=== PATIENT | female | born 1985 | race Caucasian/White ===

== ENCOUNTER 2018-11-15 15:42 | Inpatient (IN) | payer OTHER ==
[2018-11-15 19:45] VITALS: BMI 26.4
--- NOTE | 2018-11-15 21:19 | HP ---
COWS - Scale Resting Pulse: 0= [place] 80 or Below Sweatin= Chills/Flushing Restless Observation: 5= Unable to Sit Still Pupil Size: 0= Normal to Room Light Bone or Joint Aches: 4=Acute Joint/Muscle Pain Runny Nose/ Eye Tearin= Runny Nose/Eyes GI Upset > 30mins: 0= None Tremor Observation: 1= Tremor [place], Not Seen Yawning Observation: 1= 1-2x During Session Anxiety or Irritability: 2=Irritable/Anxious Goose Flesh Skin: 3=Piloerection COWS Score: 19 CIWA Score - Admission Criteria [facility] Guidelines: Admission for Medically Managed Detox: Requires at least one of the followin. CIWA greater than 12 2. Seizures within the past 24 hours 3. Delirium tremens within the past 24 hours 4. Hallucinations within the past 24 hours 5. Acute intervention needed for co occurring medical disorder 6. Acute intervention needed for co occurring psychiatric disorder 7. Severe withdrawal that cannot be handled at a lower level of care (continued vomiting, continued diarrhea, abnormal vital signs) requiring intravenous medication and/or fluids 8. Admission ROS [facility] Chief Complaint: c/o of withdrawal sx's Allergies/Adverse Reactions: Allergies Allergy/AdvReac Type Severity Reaction Status Date / Time No Known Allergies Allergy Verified 11/15/18 19:37 History of Present Illness: 33 Y.O. FEMALE WITH OPIOID DEPENDENCE HERE FOR DETOX. THIS IS HERE FIRST ADMISSION HERE. SHE IS REFERRED BY [facility]. PRESENTS TODAY WITH WITHDRAWAL SX'S. STATES LAST USE OF HEROIN EARLIER TODAY. REPORTS DAILY USE VIA IV. SHE ALSO USES COCAINE. DENIES ANY SIGNIFICANT PERIOD OF CLEAN SINCE THE AGE OF 17 WHEN SHE FIRST STARTED USING DRUGS. REPORTS HX/O 30 DRUG OVERDOSES. LAST BEING 01/2018. 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 Exam Limitations: No Limitations - Ebola screening Have you traveled outside of the country in the last 21 days: No Have you had contact with anyone from an Ebola affected area: No Have you been sick,other than usual withdrawal symptoms: No Do you have a fever: No - Review of Systems Constitutional: Chills, Malaise, Night Sweats, Changes in sleep EENT: reports: Blurred Vision (WEARS GLASSES FOR DISTANCE), Nose Congestion Respiratory: reports: No Symptoms reported Cardiac: reports: Edema (BLE) GI: reports: No Symptoms Reported : reports: No Symptoms Reported Musculoskeletal: reports: No Symptoms Reported Integumentary: reports: No Symptoms Reported Neuro: reports: Tremors (R/T WITHDRAWAL), Dizziness (HX/O VERTIGO) Endocrine: reports: No Symptoms Reported Hematology: reports: No Symptoms Reported Psychiatric: reports: Orientated x3, Depressed Other Systems: Reviewed and Negative Patient History - Patient Medical History Hx Anemia: No Hx Asthma: No Hx Chronic Obstructive Pulmonary Disease (COPD): No Hx Cancer: No Hx Cardiac Disorders: No Hx Congestive Heart Failure: No Hx Hypertension: No Hx Hypercholesterolemia: No Hx Pacemaker: No HX Cerebrovascular Accident: No Hx Seizures: No Hx Dementia: No Hx Diabetes: No Hx Gastrointestinal Disorders: No Hx Liver Disease: No Hx Genitourinary Disorders: No Hx Sexually Transmitted Disorders: Yes (HX/O GC/CHL) Hx Renal Disease (ESRD): No Hx Thyroid Disease: No Hx Human Immunodeficiency Virus (HIV): No Hx Hepatitis C: Yes (NO TXMENT) Hx Depression: No Hx Suicide Attempt: No Hx Bipolar Disorder: No Hx Schizophrenia: No Other Medical History: DENIES - Patient Surgical History Past Surgical History: No - PPD History Previous Implant?: Yes Documented Results: Negative w/o proof Implanted On Prior [facility] Admission?: No PPD to be Administered?: Yes - Reproductive History Patient is a Female of Child Bearing Age (11 -55 yrs old): Yes LMP comment: DOES NOT RECALL-IRREG Patient : No (NEG [facility]) - Smoking Cessation Smoking history: Current every day smoker Have you smoked in the past 12 months: Yes Aproximately how many cigarettes per day: 20 Cigars Per Day: 0 Hx Chewing Tobacco Use: No Initiated information on smoking cessation: Yes 'Breaking Loose' booklet given: 11/15/18 - Substance & Tx. History Hx Alcohol Use: No Hx Substance Use: Yes Substance Use Type: Cocaine, Heroin Hx Substance Use Treatment: No (DENIES) - Substances abused Heroin Substance route: Injection Frequency: Daily Amount used: 1 bundle Age of first use: 30 Date of last use: 11/15/18 Crack Substance route: Smoking Frequency: Daily Amount used: 5 grams Age of first use: 17 Date of last use: 11/15/18 Cocaine Substance route: Inhalation Frequency: 3-6 times per week Amount used: 1 bag Age of first use: 17 Date of last use: 11/12/18 Family Disease History - Family Disease History Family History: Denies Admission Physical Exam [facility] - Vital Signs Vital Signs: Vital Signs - 24 hr 11/15/18 19:38 Temperature 98.3 F Pulse Rate 73 Respiratory 20 Rate Blood Pressure 127/88 - Physical General Appearance: Yes: Moderate Distress, Tremorous (FELT), Irritable, Anxious , Other (FALLING ASLEEP INTERMITTENTLY DURING INTERVIEW) HEENTM: Yes: EOMI, Normocephalic, Normal Voice, ROXANA, Pharynx Normal, Other ( POOR DENTAL HYGIENE) Respiratory: Yes: Chest Non-Tender, Lungs Clear, Normal Breath Sounds, No Respiratory Distress, No Accessory Muscle Use Neck: Yes: No masses,lesions,Nodules, Supple, Trachea in good position Breast: Yes: Breasts Symetrical Cardiology: Yes: Regular Rhythm, Regular Rate, S1, S2 Abdominal: Yes: Normal Bowel Sounds, Non Tender, Soft Genitourinary: Yes: Within Normal Limits (NO C/O OFFERED) Back: Yes: Normal Inspection Musculoskeletal: Yes: full range of Motion, Gait Steady Extremities: Yes: Normal Range of Motion, Non-Tender, Tremors (FELT) Neurological: Yes: Fully Oriented, Alert, Motor Strength 5/5, Depressed Affect Integumentary: Yes: Dry, Warm, Track [place] (TO BOTH ARMS) Lymphatic: Yes: Within Normal Limits - Diagnostic (1) Opioid dependence with withdrawal Current Visit: Yes Status: Acute (2) Cocaine dependence, uncomplicated Current Visit: Yes Status: Acute (3) Nicotine dependence Current Visit: Yes Status: Chronic Qualifiers: Nicotine product type: cigarettes Substance use status: uncomplicated Qualified Code(s): F17.210 - Nicotine dependence, cigarettes, uncomplicated (4) IVDU (intravenous drug user) Current Visit: Yes Status: Acute (5) Hepatitis C carrier Current Visit: Yes Status: Acute Cleared for Admission [facility] - Detox or Rehab [facility] Level of Care: Medically Managed Detox Regimen/Protocol: Methadone Claeared for Rehab Admission: No Breathalyzer - Breathalyzer Breathalyzer: 0 Urine Drug Screen - Test Device Lot number: [id number] Expiration date: 08/18/20 - Control Is test valid?: Yes - Results Drug screen NEGATIVE: No Urine drug screen results: CHELY-Cocaine, FEN-Fentanyl, MOP-Opiates, OXY-Oxycodone Inpatient Rehab Admission - Rehab Decision to Admit Inpatient rehab admission?: No
[2018-11-15] MEDS ORDERED: DICYCLOMINE HCL 10 MG CAPSULE PO PRN (21:26)
[2018-11-15] MEDS ORDERED: IBUPROFEN 400 MG TABLET (FP) PO PRN (21:26)
[2018-11-15] MEDS ORDERED: MAGNESIUM CITRATE 300 ML BOTTLE PO PRN (21:26)
[2018-11-15] MEDS ORDERED: ACETAMINOPHEN 325 MG TABLET (FP) PO PRN ×2 (21:26)
[2018-11-15] MEDS ORDERED: ONDANSETRON *ODT* 4 MG TABLET SL PRN (21:26)
[2018-11-15] MEDS ORDERED: MAG HYDROX/AL HYDROX/SIMETH 30 ML UNIT-DOSE CUP PO PRN (21:26)
[2018-11-15] MEDS ORDERED: NICOTINE POLACRILEX 2 MG GUM BUC PRN (21:26)
[2018-11-15] MEDS ORDERED: METHOCARBAMOL 500 MG TABLET PO PRN (21:26)
[2018-11-15] MEDS ORDERED: MELATONIN 5 MG TABLETS PO PRN (21:26)
[2018-11-15] MEDS ORDERED: MAGNESIUM HYDROX 2400MG/30ML ORAL SUSPENSION 30 ML CUP PO PRN (21:26)
[2018-11-15] MEDS ORDERED: BISMUTH SUBSALICYLATE 524 MG/30 ML UD PO PRN (21:26)
[2018-11-15] MEDS ORDERED: hydrOXYzine PAMOATE 25 MG CAPSULE (FP) PO PRN (21:26)
[2018-11-15] MEDS ORDERED: P-EPHED 60MG/TRIPROLIDI 2.5MG TABLET PO PRN (21:26)
[2018-11-15] MEDS ORDERED: MENTHOL/PHENOL 1 EACH UD MM PRN (21:26)
[2018-11-15] MEDS ORDERED: guaiFENesin 200 MG/10 ML 10 ML UNIT-DOSE CUPS PO PRN (21:26)
[2018-11-15] MEDS: THIAMINE HCL 100 MG TABLET (FP) PO SCH (23:19)
[2018-11-15] MEDS ORDERED: METHADONE HCL 10 MG TABLET (FOR DETOX USE ONLY) PO ONE (23:43)
[2018-11-16] MEDS ORDERED: METHADONE HCL 5 MG TABLET (FOR DETOX USE ONLY) ONE (09:00)
[2018-11-16] MEDS ORDERED: METHADONE HCL 10 MG TABLET (FOR DETOX USE ONLY) ONE (09:00)
[2018-11-16] MEDS ORDERED: METHADONE (DETOX) 20 MG, METHADONE (DETOX) 5 MG PO ONE (10:00)
[2018-11-16] MEDS: NICOTINE 21 MG/24 HOURS TOPICAL PATCH TD SCH (10:26)
[2018-11-16] MEDS: PRENATAL VITAMINS W/ FOLIC ACID TABLET (FP) PO SCH (10:26)
--- NOTE | 2018-11-16 10:34 | EKG ---
Test Reason : Blood Pressure : / mmHG Vent. Rate : 067 BPM Atrial Rate : 067 BPM P-R Int : 134 ms QRS Dur : 072 ms QT Int : 418 ms P-R-T Axes : 035 025 032 degrees QTc Int : 441 ms NORMAL SINUS RHYTHM NORMAL ECG NO PREVIOUS ECGS AVAILABLE Confirmed by CARMELA CARLSON, SARAH ([id number]) on 11/16/2018 10:33:54 AM Referred By: AYDEN CARVAJAL Confirmed By:SARAH CASEY MD
[2018-11-16 11:47] LABS: HEMATOCRIT 41.1 % (32.4-45.2); HEMOGLOBIN 13.5 GM/dL (10.7-15.3); MCH 29.7 pg (25.7-33.7); MCHC 32.8 g/dl (32.0-36.0); MEAN CELL VOLUME 90.7 fl (80-96); MEAN PLT VOLUME 7.1 fl (7.5-11.1); PLATELET COUNT 302 K/MM3 (134-434); RBC 4.53 M/mm3 (3.60-5.2); RDW 14.3 % (11.6-15.6); WHITE BLOOD COUNT 6.6 K/mm3 (4.0-10.0)
[2018-11-16 11:51] LABS: ALBUMIN 3.8 g/dl (3.4-5.0); BILIRUBIN,TOTAL 0.7 mg/dL (0.2-1); BLOOD UREA NITROGEN 6.7 mg/dL (7-18); CALCIUM 9.4 mg/dL (8.5-10.1); CREATININE 0.6 mg/dL (0.55-1.3); POTASSIUM 4.2 mmol/L (3.5-5.1); TOT PROT 8.1 g/dl (6.4-8.2)
--- NOTE | 2018-11-16 12:48 | PN ---
BHS COWS - Scale Resting Pulse: 1= [place] 81-100 Sweatin=Flushed/Facial Moisture Restless Observation: 1= Difficult to Sit Still Pupil Size: 0= Normal to Room Light Bone or Joint Aches: 2= Severe Diffuse Aches Runny Nose/ Eye Tearin= Runny Nose/Eyes GI Upset > 30mins: 0= None Tremor Observation of Outstretched Hands: 1= Tremor [place], Not Seen Yawning Observation: 1= 1-2x During Session Anxiety or Irritability: 1=Feels Anxious/Irritable Goose Flesh Skin: 0=Smooth Skin COWS Score: 11 S Progress Note (SOAP) Subjective: sweats shakes interrupted sleep body aches Objective: 11/16/18 12:48 Vital Signs Temperature 98.9 F 11/16/18 09:46 Pulse Rate 86 11/16/18 09:46 Respiratory Rate 18 11/16/18 09:46 Blood Pressure 156/92 11/16/18 09:46 O2 Sat by Pulse Oximetry (%) Laboratory Tests 11/16/18 11/16/18 07:30 07:30 WBC 6.6 RBC 4.53 Hgb 13.5 Hct 41.1 MCV 90.7 MCH 29.7 MCHC 32.8 RDW 14.3 Plt Count 302 MPV 7.1 L Sodium 139 Potassium 4.2 Chloride 105 Carbon Dioxide 28 Anion Gap 6 L BUN 6.7 L Creatinine 0.6 Est GFR (CKD-EPI)AfAm 137.83 Est GFR (CKD-EPI)NonAf 118.92 Random Glucose 81 Calcium 9.4 Total Bilirubin 0.7 AST 21 ALT 28 Alkaline Phosphatase 93 Total Protein 8.1 Albumin 3.8 labs noted aaox3 ambulating no acute distress Assessment: 11/16/18 12:48 withdrawal sx Plan: continue detox increase fluids
--- NOTE | 2018-11-16 14:55 | CONSULT ---
[facility] Psychiatric Consult - Data Date of interview: 11/16/18 Admission source: [facility] Identifying data: Yarn Examiner Skeins approached patient for psychiatric consultation. Stated , "no no. i'm fine. i don't have to see you." Psychiatric consultation refused.
[2018-11-16] MEDS: cloNIDine HCL 0.1 MG TABLET PO PRN (20:07)
[2018-11-16] MEDS: THIAMINE HCL 100 MG TABLET (FP) PO SCH (22:26)
[2018-11-17] MEDS: cloNIDine HCL 0.1 MG TABLET PO PRN (09:51)
[2018-11-17] MEDS: NICOTINE 21 MG/24 HOURS TOPICAL PATCH TD SCH (09:54)
[2018-11-17] MEDS: PRENATAL VITAMINS W/ FOLIC ACID TABLET (FP) PO SCH (09:54)
[2018-11-17] MEDS ORDERED: METHADONE HCL 10 MG TABLET (FOR DETOX USE ONLY) PO ONE (10:00)
--- NOTE | 2018-11-17 12:57 | PN ---
[facility] COWS - Scale Resting Pulse: 0= [place] 80 or Below Sweatin=Flushed/Facial Moisture Restless Observation: 1= Difficult to Sit Still Pupil Size: 0= Normal to Room Light Bone or Joint Aches: 2= Severe Diffuse Aches Runny Nose/ Eye Tearin= Runny Nose/Eyes GI Upset > 30mins: 0= None Tremor Observation of Outstretched Hands: 2= Slight Tremor Visible Yawning Observation: 2= >3x During Session Anxiety or Irritability: 1=Feels Anxious/Irritable Goose Flesh Skin: 0=Smooth Skin COWS Score: 12 BHS Progress Note (SOAP) Subjective: sweats shakes chills body aches interrupted sleep anxiety Objective: 11/17/18 12:57 Vital Signs Temperature 97.9 F 11/17/18 12:41 Pulse Rate 67 11/17/18 12:41 Respiratory Rate 18 11/17/18 12:41 Blood Pressure 121/76 11/17/18 12:41 O2 Sat by Pulse Oximetry (%) Laboratory Tests 11/16/18 11/16/18 11/16/18 07:30 07:30 07:30 WBC 6.6 RBC 4.53 Hgb 13.5 Hct 41.1 MCV 90.7 MCH 29.7 MCHC 32.8 RDW 14.3 Plt Count 302 MPV 7.1 L Sodium 139 Potassium 4.2 Chloride 105 Carbon Dioxide 28 Anion Gap 6 L BUN 6.7 L Creatinine 0.6 Est GFR (CKD-EPI)AfAm 137.83 Est GFR (CKD-EPI)NonAf 118.92 Random Glucose 81 Calcium 9.4 Total Bilirubin 0.7 AST 21 ALT 28 Alkaline Phosphatase 93 Total Protein 8.1 Albumin 3.8 RPR Titer Nonreactive HIV 1&2 Ag/Ab, 4th Gen HIV 1&2 Antibody Screen HIV P24 Antigen 11/16/18 11/16/18 07:30 10:00 WBC RBC Hgb Hct MCV MCH MCHC RDW Plt Count MPV Sodium Potassium Chloride Carbon Dioxide Anion Gap BUN Creatinine Est GFR (CKD-EPI)AfAm Est GFR (CKD-EPI)NonAf Random Glucose Calcium Total Bilirubin AST ALT Alkaline Phosphatase Total Protein Albumin RPR Titer HIV 1&2 Ag/Ab, 4th Gen Non reactive HIV 1&2 Antibody Screen Cancelled HIV P24 Antigen Cancelled labs noted aaox3 ambulating no acute distress Assessment: 11/17/18 12:57 withdrawal sx Plan: continue detox increase fluids
[2018-11-17 21:56] LABS: EPI CELLS 22.6 /HPF (0-5/HPF); HYALINE CASTS 98 /lpf (0-8); URINE APPEARANCE TURBID; URINE BACTERIA 882.5 /hpf (NEGATIVE); URINE BILIRUBIN NEGATIVE (NEGATIVE); URINE COLOR DK YELLOW; URINE GLUCOSE (UA) NEGATIVE (NEGATIVE); URINE KETONE NEGATIVE (NEGATIVE); URINE LEUK ESTERASE 2+ (NEGATIVE); URINE NITRITE NEGATIVE (NEGATIVE); URINE PROTEIN TRACE (NEGATIVE); URINE RBC 1 /hpf (0-4); URINE WBC 79 /hpf (0-5)
[2018-11-17] MEDS: THIAMINE HCL 100 MG TABLET (FP) PO SCH (22:08)
[2018-11-17 22:49] LABS: URINE CRYSTALS NONE SEEN /hpf
[2018-11-18] MEDS ORDERED: METHADONE HCL 10 MG TABLET (FOR DETOX USE ONLY) ONE (09:08)
[2018-11-18] MEDS ORDERED: METHADONE HCL 5 MG TABLET (FOR DETOX USE ONLY) ONE (09:08)
[2018-11-18] MEDS: NICOTINE 21 MG/24 HOURS TOPICAL PATCH TD SCH (09:15)
[2018-11-18] MEDS: PRENATAL VITAMINS W/ FOLIC ACID TABLET (FP) PO SCH (09:15)
[2018-11-18] MEDS ORDERED: METHADONE (DETOX) 10 MG, METHADONE (DETOX) 5 MG PO ONE (10:00)
--- NOTE | 2018-11-18 11:13 | PN ---
BHS COWS - Scale Resting Pulse: 0= [place] 80 or Below Sweatin= Beads of Sweat on Face Restless Observation: 1= Difficult to Sit Still Pupil Size: 0= Normal to Room Light Bone or Joint Aches: 4=Acute Joint/Muscle Pain Runny Nose/ Eye Tearin= None GI Upset > 30mins: 1= Stomach Cramp Tremor Observation of Outstretched Hands: 2= Slight Tremor Visible Yawning Observation: 1= 1-2x During Session Anxiety or Irritability: 2=Irritable/Anxious Goose Flesh Skin: 0=Smooth Skin COWS Score: 14 BHS Progress Note (SOAP) Subjective: c/o stomach cramp, anxiety, irritability, sweats, and headache. Objective: 11/18/18 11:12 Vital Signs 11/18/18 11/18/18 11/18/18 03:30 07:16 09:48 Temperature 97.7 F 98.4 F Pulse Rate 63 74 Respiratory 18 17 18 Rate Blood Pressure 118/77 142/95 Lab Results WBC 6.6 K/mm3 (4.0-10.0) 11/16/18 07:30 RBC 4.53 M/mm3 (3.60-5.2) 11/16/18 07:30 Hgb 13.5 GM/dL (10.7-15.3) 11/16/18 07:30 Hct 41.1 % (32.4-45.2) 11/16/18 07:30 MCV 90.7 fl (80-96) 11/16/18 07:30 MCHC 32.8 g/dl (32.0-36.0) 11/16/18 07:30 RDW 14.3 % (11.6-15.6) 11/16/18 07:30 Plt Count 302 K/MM3 (134-434) 11/16/18 07:30 Sodium 139 mmol/L (136-145) 11/16/18 07:30 Potassium 4.2 mmol/L (3.5-5.1) 11/16/18 07:30 Chloride 105 mmol/L (98-107) 11/16/18 07:30 Carbon Dioxide 28 mmol/L (21-32) 11/16/18 07:30 Anion Gap 6 MMOL/L (8-16) L 11/16/18 07:30 BUN 6.7 mg/dL (7-18) L 11/16/18 07:30 Creatinine 0.6 mg/dL (0.55-1.3) 11/16/18 07:30 Random Glucose 81 mg/dL (74-106) 11/16/18 07:30 Calcium 9.4 mg/dL (8.5-10.1) 11/16/18 07:30 Labs noted. Assessment: 11/18/18 11:13 AOX3, in no acute respiratory distress. Full ROM, ambulating in the unit. withdrawal symptoms. Plan: continue detox.
[2018-11-18 13:35] VITALS: BP 108/64; PULSE 69; TEMP 97.5
--- NOTE | 2018-11-18 15:19 | DS ---
[facility] Detox Discharge Summary Admission Date: 11/15/18 Discharge Date: 11/18/18 (Left AMA) - History Present History: Cocaine Dependence, Opioid Dependence Additional Comments: Pt left AMA, pt did not complete her detox protocol. Pt states she wants to leave, attempt to let her stay and complete the detox protocol failed. Pt is encouraged to follow-up with [facility] outpatient program and also to follow-up with her PMD but is adamant about the information given. Pt is alert and oriented x3 and in no acute respiratory distress. Pertinent Past History: H/O cocaine and heroin use disorder. - Physical Exam Results Vital Signs: Vital Signs Temperature 97.5 F L 11/18/18 13:34 Pulse Rate 69 11/18/18 13:34 Respiratory Rate 18 11/18/18 13:34 Blood Pressure 108/64 11/18/18 13:34 O2 Sat by Pulse Oximetry (%) Vital Signs 11/18/18 11/18/18 11/18/18 07:16 09:48 13:34 Temperature 97.7 F 98.4 F 97.5 F L Pulse Rate 63 74 69 Respiratory 17 18 18 Rate Blood Pressure 118/77 142/95 108/64 Lab Results WBC 6.6 K/mm3 (4.0-10.0) 11/16/18 07:30 RBC 4.53 M/mm3 (3.60-5.2) 11/16/18 07:30 Hgb 13.5 GM/dL (10.7-15.3) 11/16/18 07:30 Hct 41.1 % (32.4-45.2) 11/16/18 07:30 MCV 90.7 fl (80-96) 11/16/18 07:30 MCHC 32.8 g/dl (32.0-36.0) 11/16/18 07:30 RDW 14.3 % (11.6-15.6) 11/16/18 07:30 Plt Count 302 K/MM3 (134-434) 11/16/18 07:30 Sodium 139 mmol/L (136-145) 11/16/18 07:30 Potassium 4.2 mmol/L (3.5-5.1) 11/16/18 07:30 Chloride 105 mmol/L (98-107) 11/16/18 07:30 Carbon Dioxide 28 mmol/L (21-32) 11/16/18 07:30 Anion Gap 6 MMOL/L (8-16) L 11/16/18 07:30 BUN 6.7 mg/dL (7-18) L 11/16/18 07:30 Creatinine 0.6 mg/dL (0.55-1.3) 11/16/18 07:30 Random Glucose 81 mg/dL (74-106) 11/16/18 07:30 Calcium 9.4 mg/dL (8.5-10.1) 11/16/18 07:30 Labs noted. Pertinent Admission Physical Exam Findings: withdrawal symptoms. - Treatment Hospital Course: Detox Protocol Followed - Medication Discharge Medications: Ambulatory Orders NK [No Known Home Medication] 11/15/18 - Diagnosis (1) Cocaine dependence, uncomplicated Status: Acute (2) Hepatitis C carrier Status: Acute (3) IVDU (intravenous drug user) Status: Acute (4) Opioid dependence with withdrawal Status: Acute (5) Nicotine dependence Status: Chronic Qualifiers: Nicotine product type: cigarettes Substance use status: uncomplicated Qualified Code(s): F17.210 - Nicotine dependence, cigarettes, uncomplicated - AMA Did Patient Leave Against Medical Advice: Yes
[2018-11-19] MEDS ORDERED: METHADONE HCL 10 MG TABLET (FOR DETOX USE ONLY) PO ONE (10:00)
[2018-11-20] MEDS ORDERED: METHADONE HCL 5 MG TABLET (FOR DETOX USE ONLY) PO ONE (06:00)
== END 2018-11-18 15:30 | disposition left against medical advice (07) | DRG 770 ==
LOC: YASAS 15:42 → Y3N 22:19 → Y6N 22:23
PROVIDERS: ADMIT Surgery; ATTEND Surgery
PROC: HZ2ZZZZ Detoxification Services for Substance Abuse Treatment (ICD-10-PCS; principal; 2018-11-15)
DX: F11.23 Opioid dependence with withdrawal (principal); F14.20 Cocaine dependence, uncomplicated; F17.210 Nicotine dependence, cigarettes, uncomplicated; B18.2 Chronic viral hepatitis C; Z86.19 Personal history of other infectious and parasitic diseases
CPT/HCPCS: 36415; 80053; 81003; 85027; 86480; 86593; 87389; 93005; 93010; J0735; Q0162

== ENCOUNTER 2020-02-08 05:47 | Emergency (ER) | payer OTHER ==
[2020-02-08] MEDS ORDERED: AZITHROMYCIN 500 MG TABLET PO ONE (06:35)
[2020-02-08 06:50] VITALS: BP 131/84; PULSE 98; TEMP 98.8; BMI 25.4
[2020-02-08] MEDS ORDERED: metroNIDAZOLE 250 MG TABLET PO ONE (06:55)
[2020-02-08] MEDS ORDERED: AZITHROMYCIN 250 MG TABLET ONE ×2 (07:01→07:10)
[2020-02-08] MEDS ORDERED: AZITHROMYCIN 250 MG TABLET PO ONE (07:08)
[2020-02-08] MEDS ORDERED: metroNIDAZOLE 250 MG TABLET ONE (07:44)
[2020-02-08 10:38] LABS: URINE APPEARANCE Clear; URINE BILIRUBIN Negative (NEGATIVE); URINE COLOR Yellow; URINE GLUCOSE (UA) Negative (NEGATIVE); URINE KETONE Trace (NEGATIVE); URINE LEUK ESTERASE Negative (NEGATIVE); URINE NITRITE Negative (NEGATIVE); URINE PROTEIN Negative (NEGATIVE)
[2020-02-08 10:38] LABS: HIV INTERPRETATION NEGATIVE (NEGATIVE)
== END 2020-02-08 08:37 | disposition home or self-care (01) ==
LOC: JER 05:47
DX: Z20.2 Contact with and (suspected) exposure to infections with a predominantly sexual mode of transmission (principal)
CPT/HCPCS: 36415; 81003; 84703; 87086; 87389; 87491; 87591; 99284-25

== ENCOUNTER 2022-08-29 02:08 | Emergency (ER) | payer SELFPAY ==
[2022-08-29 02:35] VITALS: BP 130/79; PULSE 101; RESP 18; TEMP 98.5; BMI 27.6
[2022-08-29 05:29] LABS: BASO % 0.4 % (0-2.0); EOS % 0.1 % (0-4.5); HEMATOCRIT 39.6 % (32.4-45.2); HEMOGLOBIN 12.7 GM/dL (10.7-15.3); LYMPH % 27.2 % (8-40); MCH 29.2 pg (25.7-33.7); MCHC 31.9 g/dl (32.0-36.0); MEAN CELL VOLUME 91.5 fl (80-96); MEAN PLT VOLUME 6.7 fl (7.5-11.1); NEUT % 60.3 % (42.8-82.8); PLATELET COUNT 262 10^3/uL (134-434); RBC 4.33 M/mm3 (3.60-5.2); RDW 14.1 % (11.6-15.6)
[2022-08-29 05:37] LABS: INR 1.19 (0.83-1.09); PROTHROMBIN TIME (PATIENT) 13.8 SEC (9.7-13.0)
[2022-08-29 05:48] LABS: POTASSIUM 4.5 mmol/L (3.5-5.1)
[2022-08-29 05:50] LABS: CALCIUM 8.8 mg/dL (8.5-10.1)
[2022-08-29 05:51] LABS: BLOOD UREA NITROGEN 13.6 mg/dL (7-18)
[2022-08-29 05:55] LABS: BILIRUBIN,TOTAL 0.4 mg/dL (0.2-1); CREATININE 0.6 mg/dL (0.55-1.3); TOT PROT 7.8 g/dl (6.4-8.2)
[2022-08-29 06:03] LABS: PH,URINE 5.5 (5.0-8.0); URINE APPEARANCE TURBID; URINE BILIRUBIN NEGATIVE (NEGATIVE); URINE COLOR DK YELLOW; URINE GLUCOSE (UA) NEGATIVE (NEGATIVE); URINE KETONE TRACE (NEGATIVE); URINE LEUK ESTERASE NEGATIVE (NEGATIVE); URINE NITRITE NEGATIVE (NEGATIVE); URINE PROTEIN TRACE (NEGATIVE); URINE UROBILINOGEN 0.2 mg/dL (0.2-1.0)
== END 2022-08-29 06:14 | disposition home or self-care (01) ==
LOC: JER 02:08
DX: S10.95XA Superficial foreign body of unspecified part of neck, initial encounter (principal); S01.411A Laceration without foreign body of right cheek and temporomandibular area, initial encounter; W45.8XXA Other foreign body or object entering through skin, initial encounter; V00.831A Fall from motorized mobility scooter, initial encounter
CPT/HCPCS: 36415; 70360-TC-FY; 80053; 81003; 85025; 85610; 87086; 99284-25